=== PATIENT | female | born 1965 | race Caucasian/White ===

== ENCOUNTER → 2016-08-14 | Outpatient (CLI) | payer OTHER ==
[~2016-08-14] MED LIST: BUPRTAB51 PO; HYDR-5688 PO; PANT40TA PO; PARO1TAB27 PO; RANI300T2 PO; ZOLP6.252 PO
--- NOTE | 2016-08-14 08:56 | DIAGNOSTIC IMAGING REPORT ---
RIGHT FOURTH FINGER 3 VIEWS HISTORY: RIGHT 4TH FINGER PAIN Right COMPARISON: None. FINDINGS: There is no fracture or dislocation. Soft tissue swelling at the PIP joint. No radiopaque foreign bodies. IMPRESSION: No fractures. Soft tissue swelling at the PIP joint. Electronically signed by: Franki Walter M.D. 08/14/2016 8:55 AM Dictated Date/Time: 08/14/2016 8:54 AM
== END | disposition home or self-care (01) ==
LOC: C.RDSM 08:45
PROVIDERS: ATTEND Family Medicine
DX: M79.644 Pain in right finger(s) (principal); M79.89 Other specified soft tissue disorders

== ENCOUNTER → 2016-11-02 | Outpatient (CLI) | payer OTHER ==
--- NOTE | 2016-11-02 12:02 | DIAGNOSTIC IMAGING REPORT ---
LEFT LOWER EXT NONJOINT W/O CLINICAL HISTORY: 51 years-old Female presenting with LEFT FOOT PAIN. TECHNIQUE: Multisequence, multiplanar MR imaging of the left foot was obtained without the use of intravenous contrast. COMPARISON: Correlation made to plain radiographs of the left foot from 07/15/2016. FINDINGS: Ankle joint congruent. Small ankle joint effusion. Focal signal abnormality along the posterior medial talar dome with associated subcortical signal abnormality in the opposing tibial articulation. High signal intensity within the talar dome without a well demarcated fragment. High signal within the articular cartilage consistent with cartilaginous defect. No loose body. Osteophytosis at the anterior and posterior talar dome. Os trigonum noted. Achilles tendon intact. Fat signal within the sinus Tarsi is preserved. Lateral tendons including the peroneal longus and brevis intact. Medial tendons including the tibialis posterior, flexor digitorum longus, flexor hallucis longus tendons intact. Deltoid ligament complex intact. Lateral ligament complex intact. Tibiofibular articulation intact. Medial and lateral bundles of the plantar fascia demonstrate normal signal intensity in morphology. IMPRESSION: 1. Findings consistent with osteochondral defect of the posterior medial talar dome. Electronically signed by: Rolly Loja M.D. 11/02/2016 12:01 PM Dictated Date/Time: 11/02/2016 11:47 AM
== END | disposition home or self-care (01) ==
LOC: C.MRI 10:47
PROVIDERS: ATTEND Podiatrist
DX: M72.2 Plantar fascial fibromatosis (principal); M79.672 Pain in left foot